=== PATIENT | male | born 1970 | race American Indian/Alaskan Native ===

== ENCOUNTER 2020-05-27 15:14 | Emergency (ER) | payer OTHER ==
--- NOTE | 2020-05-27 15:56 | Event Note ---
ED Screening Note Date of service: 05/27/20 Time: 15:56 ED Screening Note: Patient seen here for low hemoglobin (7.8) and ARIS today Alcoholic and history of liver cancer This initial assessment/diagnostic orders/clinical plan/treatment(s) is/are subject to change based on patients health status, clinical progression and re- assessment by fellow clinical providers in the ED. Further treatment and workup at subsequent clinical providers discretion. Patient/guardian urged not to elope from the ED as their condition may be serious if not clinically assessed and managed. Initial orders include: Labs
[2020-05-27 16:39] LABS: Basophils % (Auto) 0.7 % (0.0-1.8); Eosinophils # (Auto) 0.2 K/mm3 (0.0-0.4); Hematocrit 25.8 % (35.5-45.6); Hemoglobin 8.2 gm/dl (11.8-15.2); Lymphocytes % (Auto) 17.5 % (13.4-35.0); Mean Corpuscular HGB Conc 32 % (32-34); Mean Corpuscular Volume 87 fl (84-94); Monocytes # (Auto) 0.6 K/mm3 (0.0-0.8); Monocytes % (Auto) 10.5 % (0.0-7.3); Platelet Count 281 K/mm3 (140-440); Red Blood Count 2.96 M/mm3 (3.65-5.03); Red Cell Distribution Width 16.5 % (13.2-15.2)
[2020-05-27 16:52] LABS: INR 1.07 (0.87-1.13)
[2020-05-27 16:53] LABS: Partial Thromboplastin Time 31.1 Sec. (24.2-36.6)
[2020-05-27 16:56] LABS: Bilirubin,Urine NEG (Negative); Blood,Urine MOD (Negative); Color,Urine Straw (Yellow); Mucus,Urine FEW /HPF; Protein,Urine <15 mg/dL mg/dL (Negative); Urobilinogen,Urine < 2.0 mg/dL (<2.0)
[2020-05-27 16:57] LABS: Albumin 3.1 g/dL (3.9-5); Calcium 8.7 mg/dL (8.4-10.2)
--- NOTE | 2020-05-27 19:21 | Cat Scan Report ---
CT ABDOMEN AND PELVIS WITHOUT CONTRAST HISTORY: Renal insufficiency, history of liver cancer COMPARISON: None TECHNIQUE: Routine abdominal and pelvic CT exam performed without contrast. Lack of intravenous cont rast limits evaluation of the vascular and solid organs.. All CT scans at this location are performed using CT dose reduction for ALARA by means of automated exposure control. FINDINGS: CT ABDOMEN: Lung Bases: There is a tiny right pleural effusion. Liver: There are post surgical changes in the posterior right hepatic lobe. There is a tiny 3.6 cm fl uid collection along the posterior margin of the residual right lobe of the liver. There is a 1.5 cm hypoattenuating lesion in the residual lateral right hepatic lobe. Biliary: No significant abnormality. Spleen: No significant abnormality. Unenlarged. Pancreas: Diffuse calcifications consistent with chronic pancreatitis. Adrenals: No significant abnormality. Kidneys: No significant abnormality. Lymphatics: There are significantly enlarged portacaval lymph nodes, measuring up to 2.0 x 4.3 cm. Vasculature: No significant abnormality. Bowel/Peritoneum: No significant abnormality. No free air. No free fluid. Normal appendix. CT PELVIC: : No significant abnormality. Lymphatics: No lymphadenopathy. Osseous Structures: No aggressive appearing osseous lesions. Additional Findings: None IMPRESSION: 1. Previous partial posterior right hepatic lobe resection with a tiny 3.6 cm subcapsular fluid colle ction along the residual posterior right hepatic lobe that could represent a small abscess. 2. Indeterminate hypoattenuating lesion in the lateral right hepatic lobe could represent additional site of disease. 3. Enlarged portacaval lymph node suggesting metastatic adenopathy. 4. Chronic pancreatitis. Signer Name: Domingo Gutierrez MD Signed: 05/27/2020 7:16 PM Workstation Name: [id number]
[2020-05-27] MEDS ORDERED: SODIUM CHLORIDE 0.9% 1000 ML 1,000 ML IV ONE (22:11)
--- NOTE | 2020-05-27 22:14 | Emergency Department Report ---
ED General Adult HPI - General Chief complaint: Recheck/Abnormal Lab/Rx Stated complaint: BLOOD CHECK Time Seen by Provider: 05/27/20 15:53 Source: patient Mode of arrival: Ambulatory Limitations: No Limitations - History of Present Illness Initial comments: 50-year-old male with a past medical history of alcohol abuse, liver cancer status post tumor resection 3 years ago), diabetes currently on insulin, and hypertension presents to the hospital from [facility] for abnormal labs. Patient has been ruled in for proxy 1/2 weeks with last alcoholic drink reported 3 weeks ago. Patient had labs drawn yesterday that resulted today. Abnormalities include a hemoglobin of 7.8, BUN 31, creatinine 2.4, alk phos 129, AST 96, hemoglobin A1c 8.3 patient denies any symptoms currently other than currently feels shaky because he had his insulin but did not have anything to eat while waiting to be evaluated in ED. He was recently treated with Cipro for UTI and denies dysuria or urinary symptoms. Current medications as per detox and MAR include Lasix 20 mg, Catapres 0.1 mg, lactulose, gabapentin and insulin. Patient also receiving to a as needed medications. Patient sees a PMD on a regular basis with last outpatient visit 1.5 months ago. Last had blood drawn to 3 months ago reports that he has no history of renal insufficiency. He de nies recent weight loss or states he has regained weight recently. He also denies nausea, vomiting, diarrhea, melena, hematochezia, fever, or abdominal pain Severity scale (0 -10): 0 - Related Data Previous Rx's Medication Instructions Recorded Last Taken Type Nitrofurantoin Mclean/M-Cryst 100 mg PO Q12HR #14 capsule 05/28/20 Unknown Rx [Macrobid CAP] Allergies Allergy/AdvReac Type Severity Reaction Status Date / Time Penicillins Allergy Swelling Verified 05/27/20 15:57 ED Review of Systems ROS: Stated complaint: BLOOD CHECK Other details as noted in HPI Comment: All other systems reviewed and negative ED Past Medical Hx - Past Medical History Hx Diabetes: Yes Hx of Cancer: Yes (LIVER) - Surgical History Additional Surgical History: LIVER CA- 3 YEARS - Social History Smoking Status: Never Smoker Substance Use Type: Alcohol - Medications Home Medications: Home Medications Medication Instructions Recorded Confirmed Last Taken Type Nitrofurantoin Mclean/M-Cryst 100 mg PO Q12HR #14 capsule 05/28/20 Unknown Rx [Macrobid CAP] ED Physical Exam - General Limitations: No Limitations - Other Other exam information: General: No acute distress Head: Atraumatic Eyes: normal appearance, nonicteric sclera Neck: Normal appearance, no midline tenderness Chest: Clear to auscultation bilaterally CV: Regular rate and rhythm Abdomen: Soft, normal bowel sounds, nontender, nondistended, no rebound or guarding Back: Normal inspection Extremity: Normal inspection, full range of motion Neuro: Alert O x 3, no facial asymmetry, speech clear, no gross motor sensory deficit Psych: Appropriate behavior Skin: No rash ED Course Vital Signs 05/27/20 16:01 Temperature 97.7 F Pulse Rate 99 H Respiratory 18 Rate Blood Pressure 145/95 [Left] O2 Sat by Pulse 99 Oximetry - Consultations Consultation #1: 05/27/20 22:16 Case discussed with both on-call general surgeon and fashion photographer regarding work-up and evaluation As per general surgeon Dr. Mei, subcapsular fluid unlikely to represent abscess given lack of symptoms, fever, leukocytosis and her most likely postsurgical result residual fluid collection. Recommends follow-up with outpatient hepatocellular doctor and oncologist Meli Leyva affiliated with [facility] As per fashion photographer on-call Dr. Velez. Patient does not require admission to the hospital for new diagnosis of renal insufficiency at this time. Recommends outpatient follow-up ED Medical Decision Making - Lab Data Result diagrams: 05/27/20 16:16 05/27/20 16:16 Lab Results 05/27/20 05/27/20 05/27/20 Range/Units 16:16 16:16 16:16 WBC 5.9 (4.5-11.0) K/mm3 RBC 2.96 L (3.65-5.03) M/mm3 Hgb 8.2 L (11.8-15.2) gm/dl Hct 25.8 L (35.5-45.6) % MCV 87 (84-94) fl MCH 28 (28-32) pg MCHC 32 (32-34) % RDW 16.5 H (13.2-15.2) % Plt Count 281 (140-440) K/mm3 Lymph % (Auto) 17.5 (13.4-35.0) % Mclean % (Auto) 10.5 H (0.0-7.3) % Eos % (Auto) 4.0 (0.0-4.3) % Baso % (Auto) 0.7 (0.0-1.8) % Lymph # (Auto) 1.0 L (1.2-5.4) K/mm3 Mclean # (Auto) 0.6 (0.0-0.8) K/mm3 Eos # (Auto) 0.2 (0.0-0.4) K/mm3 Baso # (Auto) 0.0 (0.0-0.1) K/mm3 Seg Neutrophils % 67.3 (40.0-70.0) % Seg Neutrophils # 4.0 (1.8-7.7) K/mm3 PT 13.7 (12.2-14.9) Sec. INR 1.07 (0.87-1.13) APTT 31.1 (24.2-36.6) Sec. Sodium 134 L (137-145) mmol/L Potassium 4.1 (3.6-5.0) mmol/L Chloride 101.2 (98-107) mmol/L Carbon Dioxide 24 (22-30) mmol/L Anion Gap 13 mmol/L BUN 33 H (9-20) mg/dL Creatinine 2.3 H (0.8-1.3) mg/dL Estimated GFR 31 ml/min BUN/Creatinine Ratio 14 % Glucose 333 H (75-100) mg/dL POC Glucose (70-105) mg/dL Calcium 8.7 (8.4-10.2) mg/dL Total Bilirubin 0.40 (0.1-1.2) mg/dL AST 72 H (5-40) units/L ALT 40 (7-56) units/L Alkaline Phosphatase 833 H (35-129) units/L Ammonia (25-60) umol/L Total Protein 7.4 (6.3-8.2) g/dL Albumin 3.1 L (3.9-5) g/dL Albumin/Globulin Ratio 0.7 % Urine Color (Yellow) Urine Turbidity (Clear) Urine pH (5.0-7.0) Ur Specific Bath (1.003-1.030) Urine Protein (Negative) mg/dL Urine Glucose (UA) (Negative) mg/dL Urine Ketones (Negative) mg/dL Urine Blood (Negative) Urine Nitrite (Negative) Urine Bilirubin (Negative) Urine Urobilinogen (<2.0) mg/dL Ur Leukocyte Esterase (Negative) Urine WBC (Auto) (0.0-6.0) /HPF Urine RBC (Auto) (0.0-6.0) /HPF U Epithel Cells (Auto) (0-13.0) /HPF Urine Mucus /HPF 05/27/20 05/27/20 05/27/20 Range/Units 16:18 21:14 22:05 WBC (4.5-11.0) K/mm3 RBC (3.65-5.03) M/mm3 Hgb (11.8-15.2) gm/dl Hct (35.5-45.6) % MCV (84-94) fl MCH (28-32) pg MCHC (32-34) % RDW (13.2-15.2) % Plt Count (140-440) K/mm3 Lymph % (Auto) (13.4-35.0) % Mclean % (Auto) (0.0-7.3) % Eos % (Auto) (0.0-4.3) % Baso % (Auto) (0.0-1.8) % Lymph # (Auto) (1.2-5.4) K/mm3 Mclean # (Auto) (0.0-0.8) K/mm3 Eos # (Auto) (0.0-0.4) K/mm3 Baso # (Auto) (0.0-0.1) K/mm3 Seg Neutrophils % (40.0-70.0) % Seg Neutrophils # (1.8-7.7) K/mm3 PT (12.2-14.9) Sec. INR (0.87-1.13) APTT (24.2-36.6) Sec. Sodium (137-145) mmol/L Potassium (3.6-5.0) mmol/L Chloride (98-107) mmol/L Carbon Dioxide (22-30) mmol/L Anion Gap mmol/L BUN (9-20) mg/dL Creatinine (0.8-1.3) mg/dL Estimated GFR ml/min BUN/Creatinine Ratio % Glucose (75-100) mg/dL POC Glucose 266 H (70-105) mg/dL Calcium (8.4-10.2) mg/dL Total Bilirubin (0.1-1.2) mg/dL AST (5-40) units/L ALT (7-56) units/L Alkaline Phosphatase (35-129) units/L Ammonia 41.0 (25-60) umol/L Total Protein (6.3-8.2) g/dL Albumin (3.9-5) g/dL Albumin/Globulin Ratio % Urine Color Straw (Yellow) Urine Turbidity Clear (Clear) Urine pH 6.0 (5.0-7.0) Ur Specific Bath 1.009 (1.003-1.030) Urine Protein <15 mg/dl (Negative) mg/dL Urine Glucose (UA) >=500 (Negative) mg/dL Urine Ketones Neg (Negative) mg/dL Urine Blood Mod (Negative) Urine Nitrite Neg (Negative) Urine Bilirubin Neg (Negative) Urine Urobilinogen < 2.0 (<2.0) mg/dL Ur Leukocyte Esterase Tr (Negative) Urine WBC (Auto) 8.0 H (0.0-6.0) /HPF Urine RBC (Auto) 5.0 (0.0-6.0) /HPF U Epithel Cells (Auto) < 1.0 (0-13.0) /HPF Urine Mucus Few /HPF - Radiology Data Radiology results: report reviewed CT ABDOMEN AND PELVIS WITHOUT CONTRAST HISTORY: Renal insufficiency, history of liver cancer COMPARISON: None TECHNIQUE: Routine abdominal and pelvic CT exam performed without contrast. Lack of intravenous contrast limits evaluation of the vascular and solid organs.. All CT scans at this location are performed using CT dose reduction for ALARA by means of automated exposure control. FINDINGS: CT ABDOMEN: Lung Bases: There is a tiny right pleural effusion. Liver: There are post surgical changes in the posterior right hepatic lobe. There is a tiny 3.6 cm fluid collection along the posterior margin of the residual right lobe of the liver. There is a 1.5 cm hypoattenuating lesion in the residual lateral right hepatic lobe. Biliary: No significant abnormality. Spleen: No significant abnormality. Unenlarged. Pancreas: Diffuse calcifications consistent with chronic pancreatitis. Adrenals: No significant abnormality. Kidneys: No significant abnormality. Lymphatics: There are significantly enlarged portacaval lymph nodes, measuring up to 2.0 x 4.3 cm. Vasculature: No significant abnormality. Bowel/Peritoneum: No significant abnormality. No free air. No free fluid. Normal appendix. CT PELVIC: : No significant abnormality. Lymphatics: No lymphadenopathy. Osseous Structures: No aggressive appearing osseous lesions. Additional Findings: None IMPRESSION: 1. Previous partial posterior right hepatic lobe resection with a tiny 3.6 cm subcapsular fluid collection along the residual posterior right hepatic lobe that could represent a small abscess. 2. Indeterminate hypoattenuating lesion in the lateral right hepatic lobe could represent additional site of disease. 3. Enlarged portacaval lymph node suggesting metastatic adenopathy. 4. Chronic pancreatitis. - Medical Decision Making 50-year-old male who is asymptomatic was sent here by a [facility] for abnormal labs obtained while being treated at their facility. New diagnosis of mild renal insufficiency, subcapsular fluid around the liver, chronic pancreatitis, and possible signs of metastatic disease as suggested by the large portocaval lymph node. These findings were discussed with on-call general surgeon and nephrology who recommend appropriate outpatient follow-up. Patient did receive 1 L normal saline due to elevated BUN however, no signs of acidosis or hyperkalemia. Patient will be placed on Macrobid for residual UTI given mild white cells in urine Critical Care Time: No Critical care attestation.: If time is entered above; I have spent that time in minutes in the direct care of this critically ill patient, excluding procedure time. ED Disposition Clinical Impression: Renal insufficiency, Abnormal liver enzymes, Liver lesion, History of liver cancer, History of alcohol abuse, Anemia, UTI (urinary tract infection) Disposition: DC- TO HOME OR SELFCARE Is pt being admited?: No Does the pt Need Aspirin: No Condition: Stable Instructions: Preventing Chronic Kidney Disease, Liver Function Tests, Urinary Tract Infection, Adult, [id number] Additional Instructions: Take the medication as prescribed. Follow-up with your doctor or doctor/clinic provided. Return if symptoms worsen as indicated by your discharge instructions. You were provided a copy of a CAT scan and lab results from today. Please take it to your doctors for follow-up for further treatment Prescriptions: Nitrofurantoin Mclean/M-Cryst [Macrobid CAP] 100 mg PO Q12HR #14 capsule Referrals: PRIMARY CAREMD [Primary Care Provider] - 3-5 Days Hope Leyva MD [Other] - 3-5 Days (Liver cancer specialists affiliated with [facility] call to schedule an appointment) SABRINA VELEZ MD [Staff Physician] - 3-5 Days (Kidney specialist) Time of Disposition: 00:19
[2020-05-27] MEDS ORDERED: NITROFURANTOIN MONOHYD/M-CRYST 100 MG CAP PO ONE (22:24)
[2020-05-28 00:37] VITALS: BP 158/110
[2020-05-28] MEDS ORDERED: NITROFURANTOIN MONOHYD/M-CRYST 100 MG CAP PO ONE (00:40)
== END 2020-05-28 00:50 | disposition home or self-care (01) ==
LOC: ED 15:14
DX: N28.9 Disorder of kidney and ureter, unspecified (principal); N39.0 Urinary tract infection, site not specified; D64.9 Anemia, unspecified; R94.5 Abnormal results of liver function studies; K76.9 Liver disease, unspecified; E11.9 Type 2 diabetes mellitus without complications; Z85.05 Personal history of malignant neoplasm of liver; Z98.890 Other specified postprocedural states; Z79.899 Other long term (current) drug therapy; Z88.0 Allergy status to penicillin
CPT/HCPCS: 36415; 74176; 80053; 81001; 82140; 82962; 85025; 85610; 85730; 87086; 96360; 99284; J7030